=== PATIENT | female | born 1955 | race American Indian/Alaskan Native ===

== ENCOUNTER 2017-01-27 08:08 | Emergency (ER) | payer OTHER, BC ==
[2017-01-27 08:24] VITALS: PULSE 80; RESP 18; TEMP 98.3; O2SAT 97
[2017-01-27] MEDS ORDERED: Hydrocodone/Acetaminophen 5 mg /300 mg Tab PO STA (09:39)
[2017-01-27] MEDS ORDERED: Hydrocodone/Acetaminophen 5 mg /300 mg Tab PO ONE (09:44)
--- NOTE | 2017-01-27 10:36 | C.PDOC ---
History Of Present Illness 61 y/o female presents to the ED complaining of right mid back pain and left- sided neck pain, onset on Friday. 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 Patient denies direct trauma, and has been taking Aleve and tramadol without relief. She denies any associated cough , fever, chest pain, or shortness of breath. PMD: Shaik Angela Time Seen by Provider: 01/27/17 08:12 Chief Complaint (Nursing): Back Pain History Per: Patient History/Exam Limitations: no limitations Onset/Duration Of Symptoms: Days (x 6) Current Symptoms Are (Timing): Still Present Quality Of Discomfort: "Pain" Severity: Mild Past Medical History Reviewed: Historical Data, Nursing Documentation, Vital Signs Vital Signs: Last Vital Signs Temp 98.3 F 01/27/17 08:19 Pulse 80 01/27/17 08:19 Resp 18 01/27/17 08:19 BP 215/105 H 01/27/17 10:39 Pulse Ox 97 01/27/17 10:48 - Medical History PMH: HTN Family History: States: No Known Family Hx - Social History Hx Tobacco Use: No Hx Alcohol Use: Yes Hx Substance Use: No - Immunization History Hx Tetanus Toxoid Vaccination: No Hx Influenza Vaccination: No Hx Pneumococcal Vaccination: No Review Of Systems Except As Marked, All Systems Reviewed And Found Negative. Constitutional: Negative for: Fever Cardiovascular: Negative for: Chest Pain, Palpitations Respiratory: Negative for: Cough, Shortness of Breath Musculoskeletal: Positive for: Neck Pain (left-sided), Back Pain (right mid) Skin: Negative for: Rash Neurological: Negative for: Weakness, Numbness Physical Exam - Physical Exam Appears: Well, Non-toxic, Other (in mild pain) Skin: Normal Color, Warm, Dry, No Rash, No Other (Erythema) Head: Atraumatic, Normacephalic Eye(s): bilateral: Normal Inspection Oral Mucosa: Moist Neck: Normal, Normal ROM, No Midline Cervical Tenderness, No Step Off Deformity , Supple, Other (Left lower lateral neck is mildly tender to palpation along trapezius muscle) Chest: Symmetrical, Tenderness (At the T10-11 level, right lateral ribs are tender to palpation), No Ecchymosis, No Subcutaneous Emphysema Cardiovascular: Rhythm Regular, No Murmur Respiratory: Normal Breath Sounds, No Accessory Muscle Use, No Rales, No Rhonchi , No Wheezing Gastrointestinal/Abdominal: Normal Exam, Bowel Sounds, Soft, No Tenderness Extremity: Normal ROM, No Deformity Extremity: Bilateral: Atraumatic, Normal Color And Temperature, Normal ROM Neurological/Psych: Oriented x3, Normal Motor, Normal Sensation Gait: Steady ED Course And Treatment O2 Sat by Pulse Oximetry: 97 (RA) Pulse Ox Interpretation: Normal Progress Note: Time: 09:17. Initial Plan: Patient given Toradol IM and Flexeril PO. Time: 09:39. Patient continues to complain of pain. PO Vicodin and Prednisone ordered Pending reevaluation and disposition. Time: 10:33. Amlodipine 5 mg PO given due to elevated BP. She states her pain has improved and she feels better. Patient is medically stable, will be discharged home with instructions to follow up with PMD in 1-2 days. Rxs given for Naprosyn, Flexeril, Norvasc, Vicodin. She understands she should return to ED if symptoms worsen. Reevaluation Time: 10:35 Reassessment Condition: Improved Disposition Counseled Patient/Family Regarding: Studies Performed, Diagnosis, Need For Followup, Rx Given - Disposition Referrals: Shaik Miller MD [Staff Provider] - Disposition: HOME/ ROUTINE Disposition Time: 10:35 Condition: STABLE Additional Instructions: FOLLOW UP WITH YOUR DOCTOR FOR FURTHER EVALUATION OF YOUR BLOOD PRESSURE RETURN TO ER IF SYMPTOMS WORSEN Prescriptions: amLODIPine [Norvasc] 5 mg PO DAILY #15 tab Hydrocodone/Acetaminophen [Hydrocodon-Acetaminophen 5-325] 1 each PO Q6 PRN #12 tablet PRN Reason: Pain, Moderate (4-7) Naproxen [Naprosyn Tab] 375 mg PO BID PRN #15 tab PRN Reason: pain predniSONE [predniSONE Tab] 40 mg PO DAILY #6 tab Instructions: Back Pain (ED) Forms: [employer] (Paraguayan) Print Language: SERBIAN - Clinical Impression Clinical Impression: Back pain, Hypertension - Scribe Statement The provider has reviewed the documentation as recorded by the Paytonibmely Louise All medical record entries made by the Scribe were at my direction and personally dictated by me. I have reviewed the chart and agree that the record accurately reflects my personal performance of the history, physical exam, medical decision making, and the department course for this patient. I have also personally directed, reviewed, and agree with the discharge instructions and disposition.
--- NOTE | 2017-01-27 10:36 | C.PDOC ---
History Of Present Illness Keena is a 61 y/o female who presents to the ED complaining of right mid back pain and left-sided neck pain, onset on Friday. 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 No direct trauma. Taking Aleve and tramadol without relief. Denies any associated cough, fever, chest pain, or shortness of breath. PMD: Shaik Angela Time Seen by Provider: 01/27/17 08:12 Chief Complaint (Nursing): Back Pain History Per: Patient History/Exam Limitations: no limitations Onset/Duration Of Symptoms: Days (x 6) Current Symptoms Are (Timing): Still Present Past Medical History Reviewed: Historical Data, Nursing Documentation, Vital Signs Vital Signs: Last Vital Signs Temp 98.3 F 01/27/17 08:19 Pulse 80 01/27/17 08:19 Resp 18 01/27/17 08:19 BP 196/105 H 01/27/17 09:52 Pulse Ox 97 01/27/17 08:19 - Medical History PMH: HTN Denies: Chronic Kidney Disease Family History: States: Unknown Family Hx - Social History Hx Tobacco Use: No Hx Alcohol Use: Yes Hx Substance Use: No - Immunization History Hx Tetanus Toxoid Vaccination: No Hx Influenza Vaccination: No Hx Pneumococcal Vaccination: No Review Of Systems Except As Marked, All Systems Reviewed And Found Negative. Constitutional: Negative for: Fever Cardiovascular: Negative for: Chest Pain Respiratory: Negative for: Cough, Shortness of Breath Musculoskeletal: Positive for: Neck Pain (Left-sided), Back Pain (Right mid-back ) Physical Exam - Physical Exam Appears: Non-toxic, No Acute Distress, Other (mild pain) Skin: Normal Color, Warm, Dry, No Rash, No Other (Erythema) Head: Atraumatic, Normacephalic Eye(s): bilateral: Normal Inspection, PERRL, EOMI Oral Mucosa: Moist Neck: No Midline Cervical Tenderness, Other (Left lower lateral neck is mildly tender along trapezius muscle) Chest: Symmetrical, Tenderness (At the T10-11 level, right lateral ribs are tender) Cardiovascular: Rhythm Regular, No Murmur Respiratory: Normal Breath Sounds, No Accessory Muscle Use Gastrointestinal/Abdominal: Normal Exam, Soft, No Tenderness Back: Normal Inspection, No Vertebral Tenderness Extremity: Bilateral: Atraumatic, Normal Color And Temperature, Normal ROM Neurological/Psych: Oriented x3, Normal Speech Gait: Steady ED Course And Treatment O2 Sat by Pulse Oximetry: 97 (RA) Pulse Ox Interpretation: Normal Medical Decision Making Medical Decision Making: Time: 09:17 Initial Plan: --Blood work --Started on Toradol and Flexeril --Pending reevaluation and disposition Time: 09:39 --Patient continuing to complain of pain. --Started on Prednisone and Vicodin --Pending reevaluation and disposition Time: 10:33 --Amlodipine 5 mg PO Disposition - Disposition Forms: [employer] (Filipino) - Scribe Statement The provider has reviewed the documentation as recorded by the Scribe Dede Louise All medical record entries made by the Scribe were at my direction and personally dictated by me. I have reviewed the chart and agree that the record accurately reflects my personal performance of the history, physical exam, medical decision making, and the department course for this patient. I have also personally directed, reviewed, and agree with the discharge instructions and disposition.
[2017-01-27 10:40] VITALS: BP 215/105
== END 2017-01-27 10:50 | disposition home or self-care (01) ==
LOC: C.ER 08:08
DX: M54.9 Dorsalgia, unspecified (principal)
CPT/HCPCS: 96372; 99284; J1885